=== PATIENT | female | born 1965 | race Two or more races ===

== ENCOUNTER → 2020-07-30 14:21 | Outpatient (BNVA) | payer OTHER, SELFPAY | PROVIDERS: PCP Internal Medicine; Visit Provider Internal Medicine Endocrinology, Diabetes & Metabolism | DX: E03.9 Hypothyroidism, unspecified (principal); L65.9 Nonscarring hair loss, unspecified | CPT/HCPCS: 99202 ==

== ENCOUNTER 2020-07-31 12:41 | Outpatient (REF) | payer OTHER, SELFPAY ==
[2020-07-31 14:23] LABS: Free T4 (Free Thyroxine) 1.07 ng/dL (0.71-1.85); Thyroid Stimulating Hormone 3.12 uIU/mL (0.32-4.0)
[2020-08-01 05:27] LABS: DHEA Sulfate 94 mcg/dL (8-188); Sex Hormone Binding Globulin 68 nmol/L (14-73); Thyroglobulin Antibodies 2 IU/mL (< or = 1); Thyroid Peroxidase Antibodies 863 IU/mL (<9)
[2020-08-03 16:12] LABS: Zinc 75 mcg/dL (60-130)
[2020-08-04 11:31] LABS: IGF-1 (Somatomedin C) 78 ng/mL (50-317); IGF-1 Z Score (Female) -1.1 SD (-2.0 - +2.0)
[2020-08-05 15:22] LABS: Testosterone, Free 1.3 pg/mL (0.1-6.4); Testosterone, Total 18 ng/dL (2-45)
== END 2020-07-31 12:42 | disposition home or self-care (01) ==
LOC: HO.LAB 12:41
PROVIDERS: PCP Internal Medicine; Visit Provider Internal Medicine Endocrinology, Diabetes & Metabolism
DX: E03.9 Hypothyroidism, unspecified (principal); L65.9 Nonscarring hair loss, unspecified
CPT/HCPCS: 36415; 82306; 82627; 84270; 84305; 84402; 84403; 84439; 84443; 84630; 86376; 86800

== ENCOUNTER 2022-05-23 | Outpatient (REF) | payer OTHER, SELFPAY | END 2022-05-23 00:01 | disposition home or self-care (01) | LOC: HO.LNP | PROVIDERS: Visit Provider Physician Assistant Medical | DX: K29.70 Gastritis, unspecified, without bleeding (principal) | CPT/HCPCS: 87338 ==

== ENCOUNTER 2022-05-24 14:03 | Outpatient (REF) | payer OTHER, SELFPAY ==
[2022-05-24 17:16] LABS: Ferritin 112 ng/mL (10-250); Free T4 (Free Thyroxine) 0.81 ng/dL (0.71-1.85); Thyroid Stimulating Hormone 13.62 uIU/mL (0.32-4.0); Vitamin D 25-OH Total 13.6 ng/mL (>30)
== END 2022-05-24 14:04 | disposition home or self-care (01) ==
LOC: HO.LAB 14:03
PROVIDERS: PCP Internal Medicine; Visit Provider Internal Medicine Endocrinology, Diabetes & Metabolism
DX: E03.9 Hypothyroidism, unspecified (principal); E55.9 Vitamin D deficiency, unspecified; L65.9 Nonscarring hair loss, unspecified
CPT/HCPCS: 36415; 82306; 82728; 84439; 84443; 99212

== ENCOUNTER → 2023-02-08 12:29 | Outpatient (BNVA) | payer OTHER, SELFPAY | PROVIDERS: PCP Internal Medicine; Visit Provider Physician Assistant Medical | DX: S06.9X0A Unspecified intracranial injury without loss of consciousness, initial encounter (principal); S16.1XXA Strain of muscle, fascia and tendon at neck level, initial encounter; V49.00XA Driver injured in collision with unspecified motor vehicles in nontraffic accident, initial encounter | CPT/HCPCS: 99202 ==

== ENCOUNTER → 2023-02-13 09:41 | Outpatient (BNVA) | payer OTHER, SELFPAY | PROVIDERS: PCP Internal Medicine; Visit Provider Physician Assistant Medical | DX: S06.0X0A Concussion without loss of consciousness, initial encounter (principal); S16.1XXA Strain of muscle, fascia and tendon at neck level, initial encounter; V89.2XXA Person injured in unspecified motor-vehicle accident, traffic, initial encounter | CPT/HCPCS: 99213 ==

== ENCOUNTER 2024-12-17 10:30 | Outpatient (AMB) | payer OTHER, SELFPAY ==
[2024-12-17 10:42] VITALS: BP 132/80; PULSE 72; TEMP 36.7; O2SAT 96; BMI 43.4
--- NOTE | 2024-12-17 10:42 | AM.OFFWIN_ITS ---
Intake Vital Signs 3 12/17/24 10:42 Height 5 ft 3 in Weight 245 lb 4 oz BMI 43.4 BP 132/80 Blood Pressure Location Lt brachial Position Sitting Pulse 72 Pulse Source Pulse Oximeter Temp 98.0 F Temp Source Oral Pulse Oximetry (%) 96 Oxygen Delivery Method Room Air Intake Visit Reasons: EP-lt hand thumb cut Intake Note: Patient cut her thumb picking up glass Patient Tobacco Use Status: Never used Tobacco Slot Attendant Required: No Is last menstrual period known: No Post menopausal: Yes Patient : No Allergies No Known Allergies Allergy (Verified 12/17/24 10:52) Medication List - Last Reconciled 12/17/24 by Valencia Rooney, [facility]- cholecalciferol (vitamin D3) 50 mcg PO DAILY Do you need a note to return to daycare/school/sports/work: Yes HPI HPI Comments 2 History of Present Illness0 Details History of Present Illness - The patient is a 59-year-old female pr esenting with a thumb laceration, R. - Laceration incurred when broken bowl s heared skin from thumb while removing from pizzamaker last night. - Active bleeding from the laceration si nce last night. - Patient expresses concern over persist ent bleeding. - Has been applying dressing @ home to c ontrol bleeding, which has helped. - Pain tolerable - Tdap 2023 Physical Exam R thumb neurovasc intact See image below Case handed off to STEPHANIE for suture repair. Laceration repair completed. Please see procedure note. [facility] Medical History (Updated 12/17/24 @ 11:45 by Meseret Mendez PA-C) Hair loss Hypothyroidism Vitamin D deficiency Surgical History Hx of laparoscopy Hx of tubal ligation Family History Father Heart aneurysm Mother Osteoporosis Diabetes mellitus Liver disease Social History (Updated 05/24/22 @ 14:08 by OLIVIA Painting) Household Members: Spouse, Children and Other Household Members Other:: husand, daughter, dog Unable to assess alcohol history related to: Unknown Alcohol intake: never Patient Tobacco Use Status: Never used Tobacco Patient : No Review of Systems Const All systems reviewed & are unremarkable except as noted in HPI and below Physical Exam Vital Signs: Last Vital Signs Temp 98.0 F 12/17/24 10:42 Pulse 72 12/17/24 10:42 BP 132/80 12/17/24 10:42 Pulse Ox 96 12/17/24 10:42 Oxygen Delivery Method Room Air 12/17/24 10:42 BMI result Body Mass Index 43.4 Office Procedures AMB Laceration Repair Details: She cut her thumb on a glass bowl last night. Her thumb would not stop bleeding. Laceration repair performed by: Meseret Mendez Explained risks and benefits to parent: Yes Informed consent given: Yes Consent signed: No Location: right thumb Length: 1 cm Sedation: No Anesthesia: 2% lidocaine (1 cc lot#[id number] exp Apr [address] [facility] [id number] [employer] [facility]) Irrigation: saline Preparation: betadine Wound exploration: none Deep closure: No Skin closure: nylon Technique: #3 simple interrupted sutures placed at the right DIP joint of the rt thumb Topical treatment: triple antibiotic Tetanus toxoid ordered: Yes Patient tolerated procedure: well Complications: No [id number] Repair <2.5cm Procedure code (CPT) selection complete Assessment & Plan Assessment & Plan (1) Laceration of thumb: Code(s): S61.019A - Laceration without foreign body of unspecified thumb without damage to nail, initial encounter Qualifiers: Damage to nail status: without damage Encounter type: initial encounter Foreign body presence: without foreign body Laterality: right Qualified Code(s): S61.011A - Laceration without foreign body of right thumb without damage to nail, initial encounter Plan: Plan - Keep area clean and dry - Have sutures removed on 7-10 days - Tylenol or motrin as needed for pain - watch for signs of infection such as redness, discharge, fever, etc. - follow up with PCP (2) Up to date with tetanus vaccination: Code(s): Z92.29 - Personal history of other drug therapy Plan . Coding Level of Care Code Est Pt Level 4 (62192) Diagnoses Laceration of right thumb without foreign body without damage to nail, initial encounter S61.011A Damage to nail status: without damage Encounter type: initial encounter Foreign body presence: without foreign body Laterality: right Up to date with tetanus vaccination Z92.29 CPT Codes Office Procedure - Laceration Repair 1: [id number] Repair <2.5cm ([id number])
--- OUTSIDE RECORDS SUMMARY | 2024-12-17 11:41 | XMS_ITS | Encounter Summary ---
Author Organization [facility] Address [address] [place] [address] Care Team Providers Care Mannequin Coloring Artist Name Role Phone Estefania Bowden MD Primary Care Provider Reason for Visit * Reason Onset Date Comments Covid-19 12/05/2024 Encounter Details Date Type Department Care Team (Late st Contact Info) Description 12/05/2024 Telephone Adult Medicine - [place] [address] [place] [phone] Estefania Bowden MD [address] [place] [address] Covid-19 Social History Tobacco Use Types Packs/Day Years Used Date Smoking Tobacco: Never Smokeless Tobacco: Never Alcohol Use Standard Drinks/Week Comments Never 0 (1 standard drink = 0.6 oz pur e alcohol) Housing Instability Answer Date Recorde d Are you worried that in the next 2 months you may not have stable housing? Yes 05/07/2024 Food Access & Nutrition Answer Date Rec orded Do you have access to a vari ety of food including fruits and vegetables? Yes 05/07/2024 Access to Healthcare Answer Date Record ed Within the last 3 months, ho w many times did you visit the emergency department for your medical care? 1 05/07/2024 Health Literacy Answer Date Recorded How often do you need to hav e someone help you when you read instructions, pamphlets, or other written material from your doctor or pharmacy? Never 05/07/2024 Caregiver: How often do you need to have someone help you when you read instructions, pamphlets, or other written material from your doctor or pharmacy? Not on file 05/07/2024 Financial Risk Answer Date Recorded How hard is it for you to pa y for the very basics like food, housing, medical care, and air conditioning / heating? Not very hard 05/07/2024 Transportation Answer Date Recorded Has the lack of transportati on kept you from meetings, work, or from getting things needed for daily living? No Has the lack of transportati on kept you from medical appointments or from getting medications? No 05/07/2024 Social Isolation Answer Date Recorded How often do you feel lonely or isolated from those around you? Unable to respond 05/07/2024 Food Risk Answer Date Recorded Within the past 12 months we worried whether our food would run out before we got money to buy more. Never true 05/07/2024 Within the past 12 months th e food we bought just didn't last and we didn't have money to get more. Never true 05/07/2024 Dependent Care Answer Date Recorded Do you need help finding or paying for care for your loved ones. For example, child welfare director or elderly care for an older adult? No 05/07/2024 Education Answer Date Recorded Do you think completing more education or training, like finishing a GED, going to college, or learning a trade, would be helpful for you? No 05/07/2024 Employment and Income Answer Date Recor ded During the last four weeks, have you been actively looking for work? Yes 05/07/2024 Living Situation Answer Date Recorded What is your living situation? 1 07/08/2023 Comments No Sex and Gender Information Value Date Recorded Sex Assigned at Not on file Legal Sex Female 8:59 AM EST Gender Identity Not on file Sexual Orientation Not on file documented as of this encounter Progress Notes * Jj Herrera RN - 12/05/2024 11:48 AM EDT Left message for pt to please return our call * Lizbeth Fisher - 12/05/2024 11:42 AM EDT Pt tested positive for covid 19 on Friday 12/01 wants to know when she can go back to work - documented in this encounter Plan of Treatment Upcoming Encounters Date Type Department Care Team (Late st Contact Info) Description 12/19/2024 12:30 PM EDT Ancillary Procedure [facility] - [address] [place] [phone] 12/31/2024 8:30 AM EDT Consult Orthopedic Surgery - [place] [address] [place] [phone] Meenakshi Diaz PA [address] [facility] [address] [place] [phone] documented as of this encounter Visit Diagnoses Not on filedocumented in this encounter Additional Health Concerns Assessment Noted Time PHQ-9 Depression Total Score: 13 024 9:07 AM EST documented as of this encounter Care Teams Mannequin Coloring Artist Relationship Specialty Start Date End Date Estefania Bowden MD [address] [place] [id number] PCP - General Internal Medicine 05/06/24 documented as of this encounter
== END 2024-12-17 11:57 | disposition home or self-care (01) ==
PROVIDERS: Visit Provider Nurse Practitioner Family
DX: S61.011A Laceration without foreign body of right thumb without damage to nail, initial encounter (principal); Z92.29 Personal history of other drug therapy

== ENCOUNTER → 2024-12-17 10:30 | Outpatient (BNVA) | payer OTHER, SELFPAY | PROVIDERS: Visit Provider Nurse Practitioner Family | DX: S61.011A Laceration without foreign body of right thumb without damage to nail, initial encounter (principal); W26.8XXA Contact with other sharp object(s), not elsewhere classified, initial encounter; Y93.9 Activity, unspecified; Y92.9 Unspecified place or not applicable; Y99.9 Unspecified external cause status | CPT/HCPCS: 12001 ==

== ENCOUNTER 2024-12-25 11:59 | Outpatient (AMB) | payer OTHER, SELFPAY ==
[2024-12-25 12:15] VITALS: BP 130/80; PULSE 81; TEMP 36.8; O2SAT 98; BMI 43.4
--- NOTE | 2024-12-25 12:15 | AM.OFFWIN_ITS ---
Intake Vital Signs 12/25/24 12:15 Height 5 ft 3 in Weight 245 lb BMI 43.4 BP 130/80 Blood Pressure Location Lt brachial Position Sitting Pulse 81 Pulse Source Pulse Oximeter Temp 98.2 F Temp Source Oral Pulse Oximetry (%) 98 Oxygen Delivery Method Room Air Intake Visit Reasons: EP Removal of stitches on RT thumb Intake Note: presents for RT thumb SR- c/o soreness and swelling to the site Patient Tobacco Use Status: Never used Tobacco Allergies No Known Allergies Allergy (Verified 12/25/24 12:17) Do you need a note to return to daycare/school/sports/work: No HPI HPI Comments History of Present Illness Details History of Present Illness - The patient is a 59-year-old female pr esenting with wound healing assessment. - The patient had a cut that was stitche d a week ago, on a Monday. - The patient was advised to return in a week for stitch removal, but was unable to do so on the exact day. - The patient reports that the cut has b een red but has no discharge or drainage. - She denies numbness, tingling, dischar ge, bleeding, fever or chills. Physical Exam General: Cooperative, healthy appearing, comfortable, no acute distress and well developed Respiratory: Normal respiratory effort and able to speak in complete sentences. Clear to auscultation bilaterally Cardiovascular: Regular rate and rhythm. Normal S1 and S2 Skin: Well healing laceration noted on the right DIP joint with #3 sutures intact. Neuro: Patient oriented x3 Extremities: Normal to inspection Procedure- Suture removal Wound was cleaned with betadine and alcohol. #3 SIS were removed. No complications or dehiscence noted. Wound cleaned and steri strips were applied. Bandaid was applied. Patient was informed and verbally consented to the use of an ambient scribe for clinic note documentation during this visit. [facility] Medical History (Updated 12/17/24 @ 11:45 by Meseret Mendez PA-C) Vitamin D deficiency Hair loss Hypothyroidism Surgical History Hx of laparoscopy Hx of tubal ligation Family History Father Heart aneurysm Mother Osteoporosis Diabetes mellitus Liver disease Social History (Updated 05/24/22 @ 14:08 by Esme Howard Joel) Household Members: Spouse, Children and Other Household Members Other:: husand, daughter, dog Unable to assess alcohol history related to: Unknown Alcohol intake: never Patient Tobacco Use Status: Never used Tobacco Review of Systems Const All systems reviewed & are unremarkable except as noted in HPI and below Physical Exam Vital Signs: Last Vital Signs Temp 98.2 F 12/25/24 12:15 Pulse 81 12/25/24 12:15 BP 130/80 12/25/24 12:15 Pulse Ox 98 12/25/24 12:15 Oxygen Delivery Method Room Air 12/25/24 12:15 BMI result Body Mass Index 43.4 Assessment & Plan Assessment & Plan (1) Visit for suture removal: Code(s): Z48.02 - Encounter for removal of sutures Plan Plan - Remove stitches from the wound site. - Apply steri-strips to ensure the wound remains closed. - keep area clean and dry - follow up as needed Coding Level of Care Code Est Pt Level 3 (98490) Diagnoses Visit for suture removal Z48.02
--- OUTSIDE RECORDS SUMMARY | 2024-12-25 12:50 | XMS_ITS | Clinical Summary ---
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 Name Role Phone Estefania Bowden MD Primary Care Provider Allergies Active Allergy Reactions Criticality Noted Date Comments Animal Dander 06/13/2024 Other Reaction(s): sneezing, itchy eyes Apple 08/13/2024 Other Reaction(s): throat swelling,lips swelling Mae Swelling 06/13/2024 Ibuprofen 03/12/2024 Latex Swelling 06/13/2024 Other Reaction(s): precautions due to multiple friut allergies Mold 06/13/2024 Other Reaction(s): sneezing, itchy eyes Naproxen 03/21/2024 Nut - Unspecified 08/13/2024 Other Reaction(s): throat swelling Calumet Swelling 06/13/2024 Pollen Extracts 06/13/2024 Other Reaction(s): sneezing, itchy eyes Ragweed 06/13/2024 Other Reaction(s): sneezing, itchy eyes Medications levothyroxine (SYNTHROID, LEVOTHROID) 50 mcg tablet Take 1 tablet (50 mcg total) by mouth 1 (one) time each day. for 360 days. 025 Active acetaminophen (TylenoL) 325 mg capsule Take 2 capsules (650 mg total) by mouth. 3 Active nystatin-triam cinolone (MYCOLOG II) ointment Apply topically 2 (two) times a week. 30 g 3 5 026 Active ergocalciferol (VITAMIN D-2) 1,250 mcg (50,000 unit) capsuleIndicat ions:Low vitamin D level Take 1 tab weekly for 12 weeks. 12 capsule 5 Active inhalational spacing device inhaler Used as directed. 1 each 5 Active albuterol HFA (ProAir HFA) 90 mcg/actuation inhaler Inhale 2 puffs by mouth every 4 (four) hours if needed for wheezing or shortness of breath. 8.5 g 5 Active loratadine (CLARITIN) 10 mg tablet Take 1 tablet (10 mg total) by mouth 1 (one) time each day. 30 each 5 026 Active estradioL (ESTRACE) 0.01 % (0.1 mg/gram) vaginal cream Insert 1 g into the vagina. 2 025 Discontin ued(Thera py completed ) polyethylene glycol (Golytely) 236-22.74-6.74 -5.86 gram solution Take 4L by mouth once for one dose. May substitue any PEG. Starting at 6PM the night before your procedure drink 1 8oz glasses at your own pace until you complete half of the gallon. Finish 2nd half of the gallon 5 hours before your procedure. 4000 mL 5 025 Discontin ued(Thera py completed ) bisacodyL (DULCOLAX) 5 mg EC tablet Take 2 tablets by mouth right before beginning bowel prep. 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 Anemia 03/12/2024 Encounters Date Type Department Care Team Description 12/19/2024 12:30 PM EDT Ancillary Procedure [facility] [address] [facility] [address] [place] [phone] Chronic cough; Exertional dyspnea; Heart burn; BMI 40.0-44.9, adult ([facility] V24, [facility] V28) 12/05/2024 Telephone Adult [facility] [address] [place] [phone] Estefania Bowden MD Covid-19 11/26/2024 3:00 PM EDT [facility] [address] [phone] Brett Hurst MD Mild persistent asthma, unspecified whether complicated (Primary Dx); Chronic cough; Exertional dyspnea 11/26/2024 10:00 AM EDT - 11/26/2024 11:59 PM EDT Hospital Encounter Xray - [place] [address] [place] [phone] Thumb pain, right Discharge Disposition: Home or Self Care 11/26/2024 9:45 AM EDT Office Visit Adult [address] [phone] Estefania Bowden MD Thumb pain, right (Primary Dx) 11/06/2024 Telephone Adult [address] [phone] Ruben Colby PA Appointment (MyChart) 10/25/2024 10:15 AM EDT [facility] [address] [phone] Chronic cough (Primary Dx); Exertional dyspnea; Heart burn; BMI 40.0-44.9, adult ([facility] V24, [facility] V28) 10/01/2024 10:45 AM EDT Office Visit Adult [address] [phone] Osiris Guevara PA Chronic cough (Primary Dx); Exertional dyspnea; Heart burn 10/01/2024 Telephone Gastroenterology - [place] [address] [facility] [address] [facility] [address] [phone] RafyGary, DO special procedure 09/30/2024 Telephone Adult Medicine [facility] [address] [place] [phone] Estefania Bowden MD Cough 09/30/2024 Telephone Adult Medicine [facility] [address] [place] [phone] Estefania Bowden MD Referral from Last 3 Months Immunizations Name Administration Dates Next Due Hepatitis B (Omyukgd-Z-Garaf , Recombivax HB-Adult) 19yo and older 06/19/2019,05/01/2019 Td, Unspecified 02/29/2000 Tdap Tetanus diptheria acell ular pertussis (Boostrix; Adacel) 7yo and older 03/12/2024,06/25/2012 Surgical History Surgery Date Site/Laterality Comments BOWEL RESECTION PROCEDURE: HISTORICAL BOWEL RESECTION; COMMENT: rectocele surgery HERNIA REPAIR PROCEDURE: HISTORICAL HERNIA REPAIR/UMB Medical History Medical History Date Comments Ascencion's disease DX:Ascencoin 's disease Anemia DX:Anemia Vitamin D deficiency DX:Vitamin D deficiency Rectocele DX:Rectocele Central corneal ulcer, left eye DX:Central corneal ulcer, left eye Family History Medical History Relation Name Comments Other: heart failure Father Diabetes Mother Relation Name Status Comments Father Mother Social History Tobacco Use Types Packs/Day Years Used Date Smoking Tobacco: Never Smokeless Tobacco: Never Tobacco Cessation:Counseling Given: Not Answered Alcohol Use Standard Drinks/Week Comments Never 0 [...] for your loved ones. For example, child development professor or elderly care for an older adult? [...] on file Sexual Orientation Not on file Obstetrics History Last Filed Vital Signs Vital Sign Reading Time Taken Comments Blood Pressure 111/79 12/19/2024 1:06 PM EDT Pulse 74 11/26/2024 3:05 PM EDT Temperature 36.2 C (97.2 F) 11/26/2024 3:05 PM EDT Respiratory Rate 16 11/26/2024 3:05 PM EDT Oxygen Saturation 98% 11/26/2024 3:05 PM EDT Inhaled Oxygen Concentration - - Weight 110 kg (242 lb) 12/19/2024 1:06 PM EDT Height 160 cm (5' 3 ) 12/19/2024 1:06 PM EDT Body Mass Index 42.87 12/19/2024 1:06 PM EDT Plan of Treatment Upcoming Encounters Date Type Department Care Team (Late st Contact Info) Description 12/31/2024 8:30 AM EDT Consult Orthopedic Surgery - [place] [address] [facility] [address] [place] [phone] Meenakshi Diaz PA [address] [facility] [address] [place] [address] [place] [phone] Health Maintenance Due Date Last Done Comments Breast Cancer Screening 1965 Pneumococcal Vaccine: 50+ Years (1 of 2 - PCV) 1983 Zoster Vaccines (1 of 2) 2014 Hepatitis B Vaccines (3 of 3 - 19+ 3-dose series) 10/31/2019 06/19/2019, 05/01/2019 Colorectal Cancer Screening: Colonoscopy 12/19/2023 COVID-19 Vaccine (1 - 2023-2 5 season) 2024 Depression Screening 2024 05/07/2024 RSV Immunization Adult Patients (1 - Risk 60-74 years 1-dose series) 2024 Influenza Vaccine (#1) 2025 Social Influencers of Health Screening 05/07/2025 05/07/2024 Cervical Cancer Screening: HPV 03/21/2029 03/21/2024 Cholesterol Screening (Lipid Panel) 03/21/2029 03/21/2024, 03/21/2024 DTaP,Tdap,and Td Vaccines (4 - Td or Tdap) 03/12/2034 03/12/2024, 06/25/2012, 02/29/2000 HIV Screening Completed 03/21/2024 Hepatitis C Screening Completed 03/21/2024 HIB Vaccines Aged Out No longer eligi ble based on patient's age to complete this topic HPV Vaccines Aged Out No longer eligi ble based on patient's age to complete this topic Hepatitis A Vaccines Aged Out No long er eligible based on patient's age to complete this topic IPV Vaccines Aged Out No longer eligi ble based on patient's age to complete this topic MMR Vaccines Aged Out No longer eligi ble based on patient's age to complete this topic Meningococcal ACWY Vaccine Aged Out N o longer eligible based on patient's age to complete this topic Meningococcal B Vaccine Aged Out No l onger eligible based on patient's age to complete this topic RSV Immunization Patients Under 20 months Aged Out No longer eligible b ased on patient's age to complete this topic Varicella Vaccines Aged Out No longer eligible based on patient's age to complete this topic Procedures Procedure Name Priority Date/Time Associated Diagnosis Comments IMMUNOGLOBULIN IGE Routine 11/26/2024 3: 43 PM EDT Exertional dyspnea Mild persistent asthma, unspecified whether complicated XR HAND 3+ VIEWS RIGHT Routine 10:18 AM EDT Thumb pain, right PULMONARY FUNCTION TESTING Routine 10/25/2024 12:16 PM EDT Chronic cough Exertional dyspnea HELICOBACTER PYLORI ANTIGEN, STOOL Routine 09/25/2024 11:04 AM EDT Heart burn HM HPV Routine 03/21/2024 HM HEPATITIS C SCREENING Routine 03/21/2024 LIPID PANEL Routine 03/21/2024 from Last 3 Months or Most Recently Relevant to Health Maintenance Results * Immunoglobulin IgE (11/26/2024 3:43 PM EDT) IgE 25.9 0.0 - 158.0 I Unit/mL LAB CHEMISTRY METHOD 11/26/2024 7:27 PM EDT [facility] Blood Venous blood specimen / Unknown Venipuncture / Unknown 11/26/2024 3:43 PM EDT 11/26/2024 3:43 PM EDT us Brett uHrst MD LAB BLOOD ORDERABLES Final Resul t [facility] [address] [place] [address], [place] [phone] * XR Hand 3+ Views Right (11/26/2024 10:18 AM EDT) Anatomical Region Laterality Modality Upper Extremities, Hand Right Radiogra phic Imaging 11/26/2024 7:00 PM EDT Impressions 11/26/2024 7:08 PM EDT Multifocal very mild degenerative changes. POS - [id number] -------- FINAL REPORT -------- Dictated By: Sherita Tarango Dictated Date: 11/26/2024 19:00 ET Assigned Physician: Sherita Tarango Reviewed and Electronically Signed By: Sherita Tarango Signed Date: 11/26/2024 19:08 ET Workstation ID: [id number] Transcribed By: Self Edit Transcribed Date: 11/26/2024 19:00 ET Narrative 11/26/2024 7:08 PM EDT EXAM: Right hand x-ray HISTORY: Right thumb pain. COMPARISON: None FINDINGS: 3 views were performed. No evidence of an acute fracture or malalignment. Very mild degenerative changes with joint space narrowing and spurring at the IP, second DIP, and first CMC joints. Minimal spurring at the third and fifth DIP joints. No destructive bone lesion. No erosions identified. Procedure Note Sherita Tarango MD - 11/26/2024 EXAM: Right hand x-ray HISTORY: Right thumb pain. COMPARISON: None FINDINGS: 3 views were performed. No evidence of an acute fracture or malalignment. Very mild degenerativechanges with joint space narrowing and spurring at the IP, second DIP, andfirst CMC joints. Minimal spurring at the third and fifth DIP joints. Nodestructive bone lesion. No erosions identified. IMPRESSION: Multifocal very mild degenerative changes. POS - [id number] -------- FINAL REPORT -------- Dictated By: Sherita Tarango Dictated Date: 11/26/2024 19:00 ET Assigned Physician: Sherita Tarango Reviewed and Electronically Signed By: Sherita Tarango Signed Date: 11/26/2024 19:08 ET Workstation ID: [id number] Transcribed By: Self Edit Transcribed Date: 11/26/2024 19:00 ET us Estefania Bowden MD IMG XR PROCEDURES Kiara l Result * Pulmonary function testing: Spirometry with Bronchodilator (10/25/2024 12:16 PM EDT) Impressions Jillian Espinal MD - 10/25/2024 12:16 PM EDT Spirometry; FEV1/FVC 86%. FEV1 1.86 at 76%. FVC 68%. Good bronchodilator response. Mild obstruction with reversibility. us Osiris BROWN PFT ORDERABLES Final Resu lt * Helicobacter pylori antigen, stool (09/25/2024 11:04 AM EDT) Helicobacter Pylori Ag Not detected Not detected 09/27/2024 1:17 PM EDT [facility] Comment: This test was performed at [facility] using a chemiluminescent immunoassay intended for the qualitative determination of helicobacter pylori (H. pylori) antigen in human stool. The test is an aid in the diagnosis of patients suspected of H. pylori infection and to measure post therapy response from patients. Assay results should be used in conjunction with other clinical and laboratory data to assist the clinician in making individual patient management decisions. A negative test result does not preclude the possibility of the presence of H. pylori antigen in the specimen, which may occur if the level of antigen is below the detection limit of the test. Antimicrobials, proton pump inhibitors, and bismuth preparations are known to suppress H. pylori and, if ingested, may give a false negative result. In these cases a new fecal sample should be collected and tested 14 days after treatment has stopped. Positive results from patients that have used antibiotics, PPIs, or bismuth compounds in the 14 days prior to fecal sample collection are still considered accurate. This assay has not been evaluated in a pediatric population. This test has been approved as an in vitro diagnostic by the [place] Food and Drug Administration. Test performed at [facility], [address] , [place] [address] Odilia Blum MD, PhD - [facility] Stool Rectum structure / Unknown Non-blood Collection / Unknown 09/25/2024 11:04 AM EDT 09/25/2024 11:04 AM EDT Esteafnia Bowden MD LAB BODY FLUIDS AND ST OOLS ORDERABLES Final Result [facility] [address] [place] [address] * Cervical Cancer Screening: HPV (03/21/2024) [facility] Cervical Cancer Screening: HPV Negative, abstracted Historical Provider HEALTH MAINTENANCE Final Result * Hepatitis C Screening (03/21/2024) [facility] Hepatitis C Screening Abstracted Historical Provider HEALTH MAINTENANCE Final Result * (ABNORMAL) Lipid panel (03/21/2024) [facility] LDL/HDL Ratio 3 0 - 4 Triglycerides 242(A) 0 - 150 mg/dL Cholesterol 237(A) 0 - 200 mg/dL HDL 79 >=40 mg/dL LDL Cholesterol 110(A) 0 - 100 mg/dL Blood Venous blood specimen / Unknown Result [facility] Historical Provider LAB BLOOD ORDERABLES Kiara l Result from Last 3 Months or Most Recently Relevant to Health Maintenance Insurance [employer] Care Teams Car Shagger Relationship Specialty Start Date End Date Estefania Bowden MD [address] [place] [address] [phone] PCP - General Internal Medicine 05/06/24
== END 2024-12-25 14:34 | disposition home or self-care (01) ==
PROVIDERS: Visit Provider Physician Assistant Medical
DX: Z48.02 Encounter for removal of sutures (principal)